=== PATIENT | male | born 1970 | race Hispanic/Latino ===

== ENCOUNTER 2017-11-12 19:30 | Observation (INO) | payer BC ==
[2017-11-12] MEDS: Sodium Chloride 0.9% 1,000 ML IV SCH (19:51)
[2017-11-12 19:54] LABS: BASO # 0.01 K/mm3 (0.0-2.0); BASO % 0.1 % (0.0-3.0); EOS % 0.3 % (1.5-5.0); GRAN # 8.67 (1.4-6.5); GRAN % 83.3 % (50.0-68.0); HEMOGLOBIN 15.2 g/dL (14.0-18.0); LYMPH # 1.2 (1.2-3.4); LYMPH % 11.6 % (22.0-35.0); MEAN CELL VOLUME 86.6 fl (80.0-105.0); MEAN CORPUSCULAR HEMOGLOBIN 29.6 pg (25.0-35.0); MEAN CORPUSCULAR HGB CONC 34.2 g/dl (31.0-37.0); MEAN PLATELET VOLUME 9.6 fl (7.0-11.0); MONO # 0.5 (0.1-0.6); MONO % 4.7 % (1.0-6.0); RBC 5.14 10^6/uL (3.5-6.1); RED CELL DISTRIBUTION WIDTH 14.7 % (11.5-14.5); WHITE BLOOD COUNT 10.4 10^3/ul (4.5-11.0)
[2017-11-12 20:06] LABS: ALB/GLOB RATIO 1.4 (1.1-1.8); ALBUMIN 4.2 g/dL (3.0-4.8); ALT/SGPT 30 U/L (7-56); AST/SGOT 22 U/L (17-59); BLOOD UREA NITROGEN 19 mg/dL (7-21); CALCIUM 9.6 mg/dL (8.4-10.5); GFR AFRICAN-AMERICAN > 60; GFR NON-AFRICAN AMERICAN > 60; LIPASE 123 U/L (23-300)
--- NOTE | 2017-11-12 20:10 | ED PDOC ---
Arrival/HPI - General Chief Complaint: Dizziness/Lightheaded Time Seen by Provider: 11/12/17 19:31 - History of Present Illness Narrative History of Present Illness (Text): 11/12/17 20:08 pt present c/o severe dizziness associated with nausea and vomiting, no cp or jj , or blurred vision, denies abd pain Past Medical History - Provider Review Nursing Documentation Reviewed: Yes - Infectious Disease Hx of Infectious Diseases: None - Tetanus Immunization Tetanus Immunization: Unknown - Past Medical History Past Medical History: No Previous - Cardiac Hx Cardiac Disorders: Yes Hx Hypertension: Yes - Pulmonary Hx Respiratory Disorders: No - Neurological Hx Neurological Disorder: Yes Hx Vertigo: Yes Other/Comment: menieres syndrome - HEENT Hx HEENT Disorder: Yes Other/Comment: MENIERE'S - Renal Hx Renal Disorder: No - Endocrine/Metabolic Hx Endocrine Disorders: No - Hematological/Oncological Hx Blood Disorders: No - Integumentary Hx Dermatological Disorder: No - Musculoskeletal/Rheumatological Hx Musculoskeletal Disorders: No - Gastrointestinal Hx Gastrointestinal Disorders: No - Genitourinary/Gynecological Hx Genitourinary Disorders: No - Psychiatric Hx Psychophysiologic Disorder: Yes Hx Depression: No Hx Emotional Abuse: No Hx Physical Abuse: No Hx Substance Use: No Other/Comment: anger issues - Past Surgical History Past Surgical History: No Previous - Anesthesia Hx Anesthesia: No - Suicidal Assessment Feels Threatened In Home Enviroment: No Family/Social History - Physician Review Nursing Documentation Reviewed: Yes Family/Social History: No Known Family HX Smoking Status: Never Smoked Hx Alcohol Use: No Hx Substance Use: No Hx Substance Use Treatment: No Allergies/Home Meds Allergies/Adverse Reactions: Allergies No Known Allergies Allergy (Verified 11/12/17 19:37) Home Medications: Home Meds Medication Instructions Recorded Confirmed Topiramate [Topamax] 200 mg PO DAILY 07/25/12 11/12/17 Triamterene/Hydrochlorothiazid 1 tab PO DAILY 09/04/16 11/12/17 [Maxzide 75 mg-50 mg Tablet] Review of Systems - Review of Systems Constitutional: Normal Eyes: Normal ENT: Normal Respiratory: Normal Cardiovascular: Normal Gastrointestinal: Nausea, Vomiting. absent: Abdominal Pain Genitourinary Male: Normal Musculoskeletal: Normal Skin: Normal Neurological: Dizziness Endocrine: Normal Hemo/Lymphatic: Normal Psychiatric: Normal Physical Exam Vital Signs Temp Pulse Resp BP Pulse Ox 11/13/17 00:24 61 18 116/68 98 11/12/17 21:36 58 L 18 108/70 98 11/12/17 19:47 97.7 F 61 20 110/68 94 L Temperature: Afebrile Blood Pressure: Normal Pulse: Regular Respiratory Rate: Normal Appearance: Positive for: Well-Appearing, Non-Toxic, Comfortable Pain Distress: None Mental Status: Positive for: Alert and Oriented X 3 - Systems Exam Head: Present: Atraumatic, Normocephalic Pupils: Present: PERRL Extroacular Muscles: Present: EOMI, Other (nystagmus) Conjunctiva: Present: Normal Mouth: Present: Moist Mucous Membranes Neck: Present: Normal Range of Motion Respiratory/Chest: Present: Clear to Auscultation, Good Air Exchange. No: Respiratory Distress, Accessory Muscle Use Cardiovascular: Present: Regular Rate and Rhythm, Normal S1, S2. No: Murmurs Abdomen: Present: Normal Bowel Sounds. No: Tenderness, Distention, Peritoneal Signs Back: Present: Normal Inspection Upper Extremity: Present: Normal Inspection. No: Cyanosis, Edema Lower Extremity: Present: Normal Inspection. No: Edema Neurological: Present: GCS=15, CN II-XII Intact, Speech Normal Skin: Present: Warm, Dry, Normal Color. No: Rashes Psychiatric: Present: Alert, Oriented x 3, Normal Insight, Normal Concentration Medical Decision Making ED Course and Treatment: 11/13/17 01:34 CT Head Without Intravenous Contrast Dictated and Authenticated by: Nitesh Dodd MD 11/13/2017 12:31 AM Eastern Time ([place] & [place]) IMPRESSION: 1. No definite acute intracranial abnormality. 2. Incidental/non-acute findings are described above. case d/w dr fahad simms will observe for intractable vomiting 11/13/17 01:47 - Lab Interpretations Lab Results: 11/12/17 19:45 11/12/17 19:45 Lab Results 11/12/17 19:45: Sodium 141, Potassium 3.7, Chloride 105, Carbon Dioxide 24, Anion Gap 15, BUN 19, Creatinine 1.1, Est GFR ( Amer) > 60, Est GFR (Non- Af Amer) > 60, Random Glucose 186 H, Calcium 9.6, Total Bilirubin 0.5, AST 22, ALT 30, Alkaline Phosphatase 76, Troponin I < 0.01, Total Protein 7.3, Albumin 4.2, Globulin 3.1, Albumin/Globulin Ratio 1.4, Lipase 123 11/12/17 19:45: WBC 10.4 D, RBC 5.14, Hgb 15.2, Hct 44.5, MCV 86.6, MCH 29.6, MCHC 34.2, RDW 14.7 H, Plt Count 191, MPV 9.6, Gran % 83.3 H, Lymph % (Auto) 11.6 L, [place] % (Auto) 4.7, Eos % (Auto) 0.3 L, Baso % (Auto) 0.1, Gran # 8.67 H , Lymph # (Auto) 1.2, [place] # (Auto) 0.5, Eos # (Auto) 0.0, Baso # (Auto) 0.01 - RAD Interpretation Radiology Orders: 11/12/17 23:29 HEAD W/O CONTRAST [CT] Stat - EKG Interpretation EKG Interpretation (Text): 11/12/17 20:12 sinus bradycardia rate 54 rbbb nssts changes - Medication Orders Current Medication Orders: Acetaminophen (Tylenol 325mg Tab) 650 mg PO Q4H PRN PRN Reason: Pain, Mild (1-3) Sodium Chloride (Sodium Chloride 0.9%) 1,000 mls @ 80 mls/hr IV .[id number] Last Admin: 11/12/17 19:51 Dose: 80 mls/hr eMAR Start Stop Document 11/12/17 19:51 RD (Rec: 11/12/17 19:51 RD [id number]) Intravenous Solution Start Date 11/12/17 Start Time 19:51 End Date 11/13/17 End time 00:54 Total Infusion Time 303 Sodium Chloride (Sodium Chloride 0.9%) 1,000 mls @ 100 mls/hr IV .Q10H STA Stop: 11/13/17 10:43 Last Admin: 11/13/17 00:55 Dose: 100 mls/hr eMAR Start Stop Document 11/13/17 00:55 RD (Rec: 11/13/17 00:55 RD [id number]) Intravenous Solution Start Date 11/13/17 Start Time 00:55 Ondansetron HCl (Zofran Inj) 4 mg IVP Q6H PRN PRN Reason: Nausea/Vomiting Last Admin: 11/13/17 01:15 Dose: 4 mg IVP Administration Document 11/13/17 01:15 RD (Rec: 11/13/17 01:31 RD [id number]) Charges for Administration # of IVP Administrations 1 Discontinued Medications Meclizine HCl (Antivert) 25 mg PO STAT STA Stop: 11/12/17 20:06 Last Admin: 11/12/17 21:36 Dose: 25 mg Metoclopramide HCl (Reglan) 10 mg IVP ONCE ONE Stop: 11/12/17 20:14 Last Admin: 11/12/17 20:21 Dose: 10 mg IVP Administration Document 11/12/17 20:21 RD (Rec: 11/12/17 20:21 RD [id number]) Charges for Administration # of IVP Administrations 1 Ondansetron HCl (Zofran Inj) 4 mg IVP STAT STA Stop: 11/12/17 19:47 Last Admin: 11/12/17 19:51 Dose: 4 mg IVP Administration Document 11/12/17 19:51 RD (Rec: 11/12/17 19:51 RD [id number]) Charges for Administration # of IVP Administrations 1 Ondansetron HCl (Zofran Inj) 4 mg IVP STAT STA Stop: 11/13/17 00:20 Last Admin: 11/13/17 00:23 Dose: 4 mg IVP Administration Document 11/13/17 00:23 RD (Rec: 11/13/17 00:23 RD [id number]) Charges for Administration # of IVP Administrations 1 Pantoprazole Sodium (Protonix Inj) 40 mg IVP ONCE STA Stop: 11/12/17 20:40 Last Admin: 11/12/17 20:43 Dose: 40 mg IVP Administration Document 11/12/17 20:43 RD (Rec: 11/12/17 20:43 RD [id number]) Charges for Administration # of IVP Administrations 1 Disposition/Present on Arrival - Present on Arrival Any Indicators Present on Arrival: No History of DVT/PE: No History of Uncontrolled Diabetes: No Urinary Catheter: No History of Decub. Ulcer: No History Surgical Site Infection Following: None - Disposition Have Diagnosis and Disposition been Completed?: Yes Diagnosis: Intractable vomiting with nausea Disposition: HOSPITALIZED Disposition Time: 23:55 Condition: FAIR
[2017-11-12 20:17] LABS: TROPONIN I < 0.01 ng/mL
--- NOTE | 2017-11-13 00:31 | CT ---
EXAM: CT Head Without Intravenous Contrast CLINICAL HISTORY: 47 years old, male; Signs and symptoms; Dizziness; Additional info: Dizziness. HX of vertigo TECHNIQUE: Axial computed tomography images of the head/brain without intravenous contrast. All CT scans at this facility use one or more dose reduction techniques, viz.: automated exposure control; ma/kV adjustment per patient size (including targeted exams where dose is matched to indication; i.e. head); or iterative reconstruction technique. Coronal and sagittal reformatted images were created and reviewed. COMPARISON: No relevant prior studies available. FINDINGS: Brain: No intracranial hemorrhage. No mass. No definite edema. Ventricles: No hydrocephalus. Bones/joints: No acute fracture. Soft tissues: Unremarkable. Sinuses: Scattered minimal mucosal thickening. Mastoid air cells: No mastoid effusion. Orbits: Unremarkable as visualized. IMPRESSION: 1. No definite acute intracranial abnormality. 2. Incidental/non-acute findings are described above.
[2017-11-13] MEDS ORDERED: Sodium Chloride 0.9% 1,000 ML IV STA (00:44)
[2017-11-13 02:30] VITALS: BMI 47.1
[2017-11-13 09:48] VITALS: TEMP 99.3
[2017-11-13] MEDS: Sodium Chloride 0.9% 1,000 ML IV SCH (10:46)
--- NOTE | 2017-11-13 10:53 | CARD ---
APPROVED REPORT EKG Measurement Heart [id number] IL [id number] [id number] <Conclusion> Sinus bradycardia Incomplete Right bundle branch block Left anterior fascicular block PRWP V 1 - 6
[2017-11-13 13:33] VITALS: BP 118/69; PULSE 82; RESP 16; O2SAT 96
--- NOTE | 2017-11-13 21:25 | HP ---
HISTORY OF PRESENT ILLNESS: The patient is a 47 year old man with a past medical history of GERD, migraines and hypertension who presented to [facility] for evaluation of a 1 day history of vertigo associated with nausea and vomiting. The patient reports that he was in his usual state of health until the day of presentation to the ED when he ate corned beef and cabbage that was prepared by his . Several hours later he developed epigastric abdominal discomfort followed by multiple episodes of nonbloody, nonbilious vomiting. Shortly thereafter he became profoundly dizzy with sensation of the room spinning and was unable to ambulate without assistance for fear of falling. Given the symptoms he presented to the ED for further evaluation. Upon arrival to the ED he was noted to be afebrile and hemodynamically stable. He was noted to be persistently nauseous. He received multiple injections of Zofran with minimal improvement in the symptoms and as such was admitted for management of intractable nausea and vertigo. PAST MEDICAL HISTORY: As per HPI. PAST SURGICAL HISTORY: None. ALLERGIES: NKDA. MEDICATIONS: Protonix 40 mg p.o. daily, Topamax 20 mg p.o. daily, Trileptal 600 mg p.o. b.i.d. and Triamterene/HCTZ 75/50 mg p.o. daily. FAMILY HISTORY: Noncontributory. SOCIAL HISTORY: The patient denies any toxic habits. REVIEW OF SYSTEMS: A 14-point review of systems is negative except as per HPI. PHYSICAL EXAMINATION VITAL SIGNS: Temperature 99.3, pulse 77, blood pressure 111/77, respiratory rate 18, oxygen saturation 97% on room air. GENERAL: No apparent distress. HEENT: PERRL, EOMI. No scleral icterus. No conjunctival pallor. No nystagmus. NECK: Supple. Full range of motion. No JVD. No bruits. LUNGS: Clear to auscultation. CARDIOVASCULAR: Regular rate and rhythm. Normal S1 and S2. ABDOMEN: Hyperactive bowel sounds. Soft, nontender and nondistended. No rigidity. No tympany. No guarding. EXTREMITIES: No edema. NEUROLOGIC: Awake, alert and oriented x3. No focal motor deficits. LABORATORY DATA: CBC reviewed and unremarkable. CMP reviewed and unremarkable. IMAGING STUDIES: CT head without contrast demonstrates no acute pathology. ASSESSMENT: The patient is a 47 year old man with a past medical history of migraines, hypertension and GERD who presented for evaluation of a 1 day history of vertigo and he was admitted for intractable nausea, vomiting and vertigo. PLAN: 1. Vertigo. The patient has been started on Antivert 25 mg p.o. t.i.d. and reports significant improvement since admission. Continue with Zofran 4 mg IV q. 6 p.r.n. for nausea. We will order a regular diet for the patient and if he is able to tolerate this he may be discharged to home with outpatient follow up. 2. Hypertension. Blood pressure remains stable. We will hold antihypertensives at present. 3. GERD. Continue Protonix 40 mg p.o. daily. 4. Migraines. We will resume his outpatient regimen. 5. Prophylaxis. The patient remains on Protonix thus GI prophylaxis is not indicated. DVT prophylaxis is not indicated as the patient is ambulatory. CODE STATUS: Full code. George Villalobos MD MTDCathy
--- NOTE | 2017-11-15 20:09 | DS ---
ADMITTING DIAGNOSIS: Vertigo. DISCHARGE DIAGNOSIS: Vertigo. SECONDARY DIAGNOSES: GERD, migraines and hypertension. CONSULTATIONS: None. PROCEDURES: None. IMAGING STUDIES: CT of the head without contrast demonstrated no acute intracranial pathology. HISTORY OF PRESENT ILLNESS: The patient is a 47 year old man with a past medical history of GERD, migraines and hypertension who presented to [facility] for evaluation of a 1 day history of vertigo associated with nausea and vomiting. The patient reports that he was in his usual state of health until the day of presentation to the ED when he ate corned beef and cabbage that was prepared by his . Several hours later he developed epigastric abdominal discomfort followed by multiple episodes of nonbloody, nonbilious vomiting. Shortly thereafter he became profoundly dizzy with sensation of the room spinning and was unable to ambulate without assistance for fear of falling. Given his symptoms he presented to the ED for further evaluation. Upon arrival to the ED he was noted to be afebrile and hemodynamically stable, albeit persistently nauseous. He received multiple injections of Zofran with minimal improvement in his symptoms and was admitted to the [facility] for management of intractable nausea and vertigo. HOSPITAL COURSE: Upon admission to the [facility] he was started on IV fluids consisting of normal saline and was maintained on Zofran and Antivert. Several hours later, by the time of examination, the patient reported near-resolution of his symptoms. He was advised that he can be started on a regular diet and if he was able to tolerate this without difficulty, he may be discharged to home. The patient ate his lunch without difficulty and then ambulated around the [facility] with a nurse with no recurrence of his symptoms and, as such, was deemed stable for discharge to home. CONDITION: Good, improved. DISPOSITION: Home. DISCHARGE MEDICATIONS: Protonix 40 mg p.o. daily, Topamax 200 mg p.o. daily, Trileptal 600 mg p.o. b.i.d., Triamterene/HCTZ 75/50 mg p.o. daily, Zofran 4 mg p.o. q. 8 hours p.r.n. nausea and Antivert 25 mg p.o. q. 8 hours p.r.n. vertigo. DISCHARGE INSTRUCTIONS: The patient was advised that if he has any recurrence of his symptoms to present to his PMD or to the nearest ED immediately. FOLLOWUP: The patient is to follow up with his PMD within 1 week of discharge. George Villalobos MD PAULA
== END 2017-11-13 17:10 | disposition home or self-care (01) ==
LOC: ED 19:30 → ERH 11-13 00:43 → 5RSO 11-13 01:26
PROVIDERS: ADMIT Student in an Organized Health Care Education/Training Program; ATTEND Student in an Organized Health Care Education/Training Program
DX: R42 Dizziness and giddiness (principal); I10 Essential (primary) hypertension; K21.9 Gastro-esophageal reflux disease without esophagitis; G43.909 Migraine, unspecified, not intractable, without status migrainosus; R40.2412 Glasgow coma scale score 13-15, at arrival to emergency department
CPT/HCPCS: 70450; 80053; 83690; 84484; 85025; 93005; 96361; 96374; 96375; 96376; 99285; C9113; G0378; J2405; J2765; J7040

== ENCOUNTER 2018-02-26 20:04 | Observation (INO) | payer OTHER, BC ==
[2018-02-26 20:22] VITALS: BMI 49.4
[2018-02-26 20:42] LABS: HEMOGLOBIN 16.1 g/dL (14.0-18.0); MEAN CELL VOLUME 84.7 fl (80.0-105.0); MEAN CORPUSCULAR HEMOGLOBIN 28.7 pg (25.0-35.0); MEAN CORPUSCULAR HGB CONC 33.9 g/dl (31.0-37.0); MEAN PLATELET VOLUME 9.9 fl (7.0-11.0); RBC 5.61 10^6/uL (3.5-6.1); RED CELL DISTRIBUTION WIDTH 14.9 % (11.5-14.5); WHITE BLOOD COUNT 7.9 10^3/ul (4.5-11.0)
--- NOTE | 2018-02-26 21:19 | ED PDOC ---
Arrival/HPI - General Chief Complaint: Chest Pain Time Seen by Provider: 02/26/18 20:07 Historian: Patient - History of Present Illness Narrative History of Present Illness (Text): 02/26/18 20:29 A 47 year old male, whose past medical history includes Meniere's disease, presents to the emergency department complaining of onset chest pressure starting this evening. Patient reports experiencing some associated dizziness, sweating, and some slight shortness of breath as well. He states earlier today he was working outdoors, however denies performing any strenuous activity. Patient mentions he kept himself well-hydrated by drinking 8 bottles of water. Patient denies any nausea, vomiting, diarrhea, back pain, bilateral leg pain, or any other complaints at this time. PMD: Dr. Villalobos Past Medical History - Provider Review Nursing Documentation Reviewed: Yes - Infectious Disease Hx of Infectious Diseases: None - Tetanus Immunization Tetanus Immunization: Unknown - Past Medical History Past Medical History: No Previous - Cardiac Hx Cardiac Disorders: Yes Hx Hypertension: Yes - Pulmonary Hx Respiratory Disorders: No - Neurological Hx Neurological Disorder: Yes Hx Vertigo: Yes Other/Comment: menieres syndrome - HEENT Hx HEENT Disorder: No - Renal Hx Renal Disorder: No - Endocrine/Metabolic Hx Endocrine Disorders: No - Hematological/Oncological Hx Blood Disorders: No - Integumentary Hx Dermatological Disorder: No - Musculoskeletal/Rheumatological Hx Musculoskeletal Disorders: No - Gastrointestinal Hx Gastrointestinal Disorders: No - Genitourinary/Gynecological Hx Genitourinary Disorders: No - Psychiatric Hx Psychophysiologic Disorder: Yes Hx Depression: No Hx Emotional Abuse: No Hx Physical Abuse: No Hx Substance Use: No Other/Comment: anger issues - Past Surgical History Past Surgical History: No Previous - Anesthesia Hx Anesthesia: No - Suicidal Assessment Feels Threatened In Home Enviroment: No Family/Social History - Physician Review Nursing Documentation Reviewed: Yes Family/Social History: No Known Family HX Smoking Status: Never Smoked Hx Alcohol Use: No Hx Substance Use: No Hx Substance Use Treatment: No Allergies/Home Meds Allergies/Adverse Reactions: Allergies egg Allergy (Verified 11/13/17 02:31) RASH Home Medications: Home Meds Medication Instructions Recorded Confirmed Topiramate [Topamax] 200 mg PO DAILY 07/25/12 02/26/18 Triamterene/Hydrochlorothiazid 1 tab PO DAILY 09/04/16 02/26/18 [Maxzide 75 mg-50 mg Tablet] OXcarbazepine [Trileptal] 600 mg PO BID 11/13/17 02/26/18 Montelukast Sodium [Singulair] 10 mg PO DAILY 02/26/18 02/26/18 Review of Systems - Physician Review All systems were reviewed & negative as marked: Yes - Review of Systems Constitutional: Night Sweats Respiratory: SOB (slightly) Cardiovascular: Chest Pain (chest pressure) Gastrointestinal: absent: Diarrhea, Nausea, Vomiting Musculoskeletal: absent: Back Pain, Other (no bilateral leg pain) Neurological: Dizziness Physical Exam Vital Signs Reviewed: Yes Vital Signs Temp Pulse Resp BP Pulse Ox 02/27/18 04:00 72 12 128/81 96 02/27/18 02:43 71 18 123/79 96 02/27/18 00:57 81 16 117/54 L 97 02/26/18 22:04 107 H 18 128/81 95 02/26/18 21:03 116 H 18 129/88 96 02/26/18 20:06 99.0 F 121 H 20 150/92 H 98 Temperature: Afebrile Blood Pressure: Hypertensive Pulse: Tachycardic Respiratory Rate: Normal Appearance: Positive for: Well-Appearing, Non-Toxic, Comfortable Pain Distress: None Mental Status: Positive for: Alert and Oriented X 3 - Systems Exam Head: Present: Atraumatic, Normocephalic Pupils: Present: PERRL Extroacular Muscles: Present: EOMI Conjunctiva: Present: Normal Mouth: Present: Moist Mucous Membranes Neck: Present: Normal Range of Motion, Other (neck is supple) Respiratory/Chest: Present: Clear to Auscultation (bilaterally), Good Air Exchange. No: Respiratory Distress, Accessory Muscle Use Cardiovascular: Present: Tachycardic Abdomen: No: Tenderness, Distention, Peritoneal Signs Back: Present: Normal Inspection Upper Extremity: Present: Normal Inspection. No: Cyanosis, Edema, Swelling Lower Extremity: Present: Normal Inspection. No: Edema, Swelling Neurological: Present: GCS=15, CN II-XII Intact, Speech Normal. No: Other (no focal/neurological deficits) Skin: Present: Warm, Dry, Normal Color. No: Rashes Psychiatric: Present: Alert, Oriented x 3, Normal Insight, Normal Concentration Medical Decision Making ED Course and Treatment: 02/26/18 20:31 Impression: 47 year old male with chest pressure with associated dizziness, sweating, and slight shortness of breath. Plan: -- EKG -- Chest X-ray -- Labs -- Tylenol -- Reassess and disposition Prior Visits: Notes and results from previous visits were reviewed. Patient was last seen in the emergency department on 11/12/2017 for severe dizziness associated with nausea and vomiting. Patiente was admitted. Progress Notes: EKG: Ordered, reviewed, and independently interpreted the EKG. Rate : 121 BPM Rhythm : Sinus tachycardia. Interpretation : LAHB, anterioral lateral infarct. Comparison : No previous EKG for comparison. 02/26/18 21:43 CXR reviewed, shows no acute processes. 02/27/18 01:51 Lung Perfusion and Ventilation Scan shows: Ventilation: Unremarkable. No ventilation defects. Perfusion: Unremarkable. No perfusion defects. IMPRESSION: No findings to suggest pulmonary embolism 02/27/18 02:[address] Brant Villalobos, who is aware and agrees with plan. Accepts pt in to his service. Pt will go to Telemetry observation for chest pain. - Lab Interpretations Lab Results: 02/26/18 20:31 02/26/18 20:31 Lab Results 02/26/18 22:45: PT 12.3, INR 1.08, APTT 30.4 02/26/18 20:31: D-Dimer, Quantitative 289 H 02/26/18 20:31: WBC 7.9 D, RBC 5.61, Hgb 16.1, Hct 47.5, MCV 84.7, MCH 28.7, MCHC 33.9, RDW 14.9 H, Plt Count 235, MPV 9.9 02/26/18 20:31: Sodium 147, Potassium 3.0 L, Chloride 109 H, Carbon Dioxide 23, Anion Gap 18, BUN 18, Creatinine 1.8 H, Est GFR ( Amer) 49, Est GFR (Non- Af Amer) 40, Random Glucose 190 H, Calcium 9.5, Total Bilirubin 0.7, AST 25, ALT 38, Alkaline Phosphatase 81, Lactate Dehydrogenase 488, Total Creatine Kinase 93, Troponin I < 0.01, NT-Pro-B Natriuret Pep 40.9, Total Protein 7.6, Albumin 4.5, Globulin 3.1, Albumin/Globulin Ratio 1.4 I have reviewed the lab results: Yes - RAD Interpretation Radiology Orders: 02/26/18 20:17 CHEST PORTABLE [RAD] Stat 02/26/18 22:32 LUNG PERF & VENT SCAN [NM] Stat Rn Rehabilitation: ED Physician, Radiologist - EKG Interpretation Interpreted by ED Physician: Yes Type: 12 lead EKG - Medication Orders Current Medication Orders: Discontinued Medications Acetaminophen (Tylenol 325mg Tab) 650 mg PO STAT STA Stop: 02/26/18 20:24 Last Admin: 02/26/18 20:32 Dose: 650 mg MAR Pain/Vitals Document 02/26/18 20:32 RG (Rec: 02/26/18 20:47 [id number] Pain Reassessment Is This A Pain ReAssessment? Yes Sleep Is patient sleeping during reassessment? No Presence of Pain Presence of Pain Yes Pain Scale Used Pain Scale Used Numeric Location Upper or Lower Upper Pain Location Body Tax Analyst Intensity 4 Scale Used Numeric Re-Assess: MAR Pain/Vitals Document 02/26/18 21:32 RG (Rec: 02/26/18 23:18 RG [id number]) Pain Reassessment Is This A Pain ReAssessment? Yes Sleep Is patient sleeping during reassessment? No Presence of Pain Presence of Pain No Sodium Chloride (Sodium Chloride 0.9%) 1,000 mls @ 999 mls/hr IV .Q1H1M STA Stop: 02/26/18 23:38 Last Admin: 02/26/18 22:39 Dose: 999 mls/hr eMAR Start Stop Document 02/26/18 22:39 (Rec: 02/26/18 23:17 [id number] Intravenous Solution Start Date 02/26/18 Start Time 22:39 Potassium Chloride (K-Dur 20 Meq Er Tab) 40 meq PO STAT STA Stop: 02/26/18 22:35 Last Admin: 02/26/18 23:18 Dose: 40 meq Topiramate (Topamax) 200 mg PO ONCE ONE PRN Reason: Protocol Stop: 02/27/18 02:55 Last Admin: 02/27/18 03:15 Dose: 200 mg - Scribe Statement The provider has reviewed the documentation as recorded by the Heaven Ortiz Provider Scribe Attestation: All medical record entries made by the Scribe were at my direction and personally dictated by me. I have reviewed the chart and agree that the record accurately reflects my personal performance of the history, physical exam, medical decision making, and the department course for this patient. I have also personally directed, reviewed, and agree with the discharge instructions and disposition. Disposition/Present on Arrival - Present on Arrival Any Indicators Present on Arrival: No History of DVT/PE: No History of Uncontrolled Diabetes: No Urinary Catheter: No History of Decub. Ulcer: No History Surgical Site Infection Following: None - Disposition Have Diagnosis and Disposition been Completed?: Yes Diagnosis: Chest pain Disposition: HOSPITALIZED Disposition Time: 02:25 Patient Plan: Observation Condition: STABLE
[2018-02-26 22:29] LABS: ALB/GLOB RATIO 1.4 (1.1-1.8); ALBUMIN 4.5 g/dL (3.0-4.8); ALT/SGPT 38 U/L (7-56); AST/SGOT 25 U/L (17-59); BLOOD UREA NITROGEN 18 mg/dL (7-21); CALCIUM 9.5 mg/dL (8.4-10.5); GFR AFRICAN-AMERICAN 49; GFR NON-AFRICAN AMERICAN 40
[2018-02-26] MEDS ORDERED: Potassium Chloride 20 mEq ER Tab PO STA (22:34)
[2018-02-26] MEDS ORDERED: Sodium Chloride 0.9% 1,000 ML IV STA (22:38)
[2018-02-26 22:41] LABS: B-TYPE NATRIURETIC PEPTIDE 40.9 pg/mL (0-450); TROPONIN I < 0.01 ng/mL
[2018-02-26 22:58] LABS: INR 1.08 (0.93-1.08); PARTIAL THROMBOPLASTIN TIME 30.4 Seconds (25.1-36.5); PROTHROMBIN TIME 12.3 SECONDS (9.4-12.5)
[2018-02-27 02:44] VITALS: O2SAT 96
[2018-02-27 05:42] VITALS: RESP 20
[2018-02-27 09:08] LABS: TROPONIN I 0.01 ng/mL
--- NOTE | 2018-02-27 09:46 | NM ---
COMPARISON: February 26, 2018. Single-view chest TECHNIQUE: 35.0 mCi technetium 99-m DTPA aerosol. 4.0 mCI technetium 99-m MAA administered intravenously. FINDINGS: VENTILATION COMPONENT: Heterogeneous ventilation. Retention of radionuclide in the tracheobronchial tree and ingestion of radionuclide in the stomach, incidental findings PERFUSION COMPONENT: Normal. IMPRESSION: Negative study for pulmonary embolism. Concordant results (preliminary interpretation) provided by [facility]. Procedure Completed: 00:27 Preliminary ([facility]) Report: Dictated and Authenticated: 01:37 Final Interpretation: 09:44
[2018-02-27] MEDS ORDERED: Potassium Chloride 20 mEq ER Tab PO ONE (11:04)
--- NOTE | 2018-02-27 11:16 | RAD ---
HISTORY: Fever COMPARISON: No prior. FINDINGS: LUNGS: No active pulmonary disease. PLEURA: No significant pleural effusion identified, no pneumothorax apparent. CARDIOVASCULAR: No radiographic findings to suggest acute or significant cardiovascular disease. OSSEOUS STRUCTURES: No significant abnormalities. VISUALIZED UPPER ABDOMEN: Normal. OTHER FINDINGS: None. IMPRESSION: No active disease.
[2018-02-27 12:49] LABS: BLOOD UREA NITROGEN 18 mg/dL (7-21); CALCIUM 8.7 mg/dL (8.4-10.5); GFR AFRICAN-AMERICAN > 60; GFR NON-AFRICAN AMERICAN > 60
[2018-02-27 13:16] VITALS: BP 126/83; PULSE 62; TEMP 98.3
--- NOTE | 2018-02-27 13:40 | HP ---
HISTORY OF PRESENT ILLNESS: The patient is a 47 year old man with a past medical history of Meniere disease , hypertension and morbid obesity who presented to [facility] for evaluation of a sudden onset of lightheadedness, dizziness and chest pressure. The patient reports that he was in his usual state of healthy until the day of presentation to the ED when he was working outdoors in the extreme heat. The patient reports that he was attempting to remain hydrated by drinking plenty of water although states that due to the heat he was sweating profusely. Several hours into his outdoor activities he reported feeling lightheaded and went into a van to cool down. He then developed dizziness and lightheadedness associated with mild chest pressure. He was evaluated by EMS and brought to the ED for further evaluation. Upon arrival to the ED, he was found to be afebrile and hemodynamically stable. An initial EKG and troponin level were unremarkable. The patient was started on an IV fluid hydration and was subsequently admitted to the telemetry kirk for observation for chest pain. PAST MEDICAL HISTORY: As per HPI, also GERD and migraines. PAST SURGICAL HISTORY: None. ALLERGIES: NKDA. MEDICATIONS: Protonix 40 mg p.o. daily, Topamax 40 mg p.o. daily, Trileptal 600 mg p.o. b.i.d. and Triamterene/HCTZ 75/50 mg p.o. daily. FAMILY HISTORY: Noncontributory. SOCIAL HISTORY: The patient denies any toxic habits. REVIEW OF SYSTEMS: A 14 point review of systems is negative except for that as per HPI. PHYSICAL EXAMINATION: VITAL SIGNS: Temperature 97.9, pulse 70, blood pressure 109/57, respiratory rate 20, oxygen saturation 99% on room air. GENERAL: No apparent distress. HEENT: PERRL, EOMI. No scleral icterus. No conjunctival pallor. NECK: No JVD. LUNGS: Clear to auscultation. CARDIOVASCULAR: Regular rate and rhythm. Normal S1 and S2. ABDOMEN: Normoactive bowel sounds. Soft, nontender and nondistended. EXTREMITIES: No edema. NEUROLOGIC: Awake, alert and oriented x 3. No focal motor deficits. LABORATORY DATA: CBC reviewed and unremarkable. Sodium 147, potassium 3, chloride 109, bicarb 23, BUN 18, creatinine 1.8, glucose 190. Troponin less than 0.01. ASSESSMENT: The patient is a 47 year old man with a past medical history of hypertension, GERD, Meniere disease and morbid obesity who presented for evaluation of a 1 day history of sudden onset of lightheadedness, dizziness and substernal chest pain and who was admitted for management of dehydration and heat exhaustion. PLAN: 1. Atypical chest pain. No evidence of acute coronary syndrome. An initial troponin is negative and the patient remains chest pain free. We will repeat a second set of cardiac enzymes and if this is negative, the patient may be discharged to home. 2. Dehydration. The patient was counseled on the need to maintain an adequate fluid intake especially in the setting of profound heat and physical activity. He has also been advised to remain in cooler areas as much as possible. 3. Hypertension. Blood pressure remains stable. Continue with current medications. 4. GERD. Resume Protonix 40 mg p.o. daily. 5. Migraines. We will resume the patient's outpatient regimen. 6. Prophylaxis. GI prophylaxis is not indicated as the patient is eating. DVT prophylaxis is not indicated as the patient is ambulatory. 7. Disposition. The patient will likely be discharged home today. CODE STATUS: Full code. George Villalobos MD MTDD
--- NOTE | 2018-02-27 17:22 | CARD ---
APPROVED REPORT EKG Measurement Heart [id number] <Conclusion> Wide QRS tachycardia, unlikely VT Left anterior fascicular block Anterolateral infarct, age undetermined Abnormal ECG
== END 2018-02-27 15:12 | disposition home or self-care (01) ==
LOC: ED 20:04 → ERH 02-27 02:24 → 2RNO 02-27 04:39
PROVIDERS: ADMIT Student in an Organized Health Care Education/Training Program; ATTEND Student in an Organized Health Care Education/Training Program
DX: R07.89 Other chest pain (principal); E86.0 Dehydration; G43.909 Migraine, unspecified, not intractable, without status migrainosus; T67.5XXA Heat exhaustion, unspecified, initial encounter; I10 Essential (primary) hypertension; H81.09 Meniere's disease, unspecified ear; K21.9 Gastro-esophageal reflux disease without esophagitis; E66.01 Morbid (severe) obesity due to excess calories; Z68.42 Body mass index [BMI] 45.0-49.9, adult
CPT/HCPCS: 36415; 71045; 78582; 80048; 80053; 82550; 83615; 83880; 84484; 85027; 85378; 85610; 85730; 93005; 99285; G0378; J7030